=== PATIENT | male | born 1985 | race Caucasian/White ===

== ENCOUNTER 2022-07-12 13:50 | Emergency (ER) | payer BC, OTHER ==
[~2022-07-12] VITALS: Ht 198.1 cm; Wt 86.0 kg
[2022-07-12 14:08] VITALS: BP 160/84
[2022-07-12] MEDS ORDERED: cefTRIAXone SOD 1,000 MG VL IM ONE (16:45)
[2022-07-13] MEDS ORDERED: METO25TA93 PO ×2 (11:43→17:33)
[2022-07-13] MEDS ORDERED: LOSA-69 PO ×2 (11:43→17:33)
[2022-07-13] MEDS ORDERED: ALBU108A5 IN (17:33)
[2022-07-13] MEDS ORDERED: TADA5TAB11 PO (17:33)
[2022-07-13] MEDS ORDERED: FURO20TA3 PO (17:33)
[2022-07-13] MEDS ORDERED: INSLISPI SC (17:33)
[2022-07-13] MEDS ORDERED: WARF2.5T39 PO (17:33)
[2022-07-13] MEDS ORDERED: POTA10TA51 PO (17:33)
[2022-07-13] MEDS ORDERED: AMIO200T33 PO (17:33)
[2022-07-13] MEDS ORDERED: FLUT0.05 NAS (17:33)
== END 2022-07-12 18:56 | disposition home or self-care (01) ==
LOC: ER 13:50
DX: L03.116 Cellulitis of left lower limb (principal); Q87.40 Marfan syndrome, unspecified; E11.9 Type 2 diabetes mellitus without complications; Z88.8 Allergy status to other drugs, medicaments and biological substances
CPT/HCPCS: 73630; 96372; 99283; J0696

== ENCOUNTER 2022-07-13 08:02 | Inpatient (IN) | payer BC ==
[~2022-07-13] VITALS: Ht 198.1 cm; Wt 80.0 kg
[2022-07-13 09:35] LABS: Basophils # (auto) 0.1 10 ^3/uL (0-0.2); Basophils % (auto) 1.2 % (0.0-2.0); Eosinophils # (auto) 0.7 10 ^3/uL (0-0.8); Hematocrit 39.7 % (41.0-53.0); Hemoglobin 13.4 g/dL (13.5-17.5); Lymphocytes % (auto) 12.7 % (10.0-50.0); Mean Corpuscular Hemoglobin 31.6 pg (28.0-32.0); Mean Corpuscular Hgb Conc. 33.8 g/dL (32.0-36.0); Mean Corpuscular Volume 93.6 fL (80.0-100.0); Monocytes # (auto) 0.7 10 ^3/uL (0-1.3); Monocytes % (auto) 8.6 % (0.0-12.0); Neutrophils # (auto) 5.2 10 ^3/uL (1.6-8.6); Neutrophils % (auto) 68.5 % (37.0-80.0); Red Blood Cells 4.24 10^6/uL (4.5-5.90); Red Cell Distribution Width 16.7 % (11.8-14.3); White Blood Cell 7.7 10^3/uL (4.4-10.8)
[2022-07-13 10:04] LABS: Albumin 3.1 g/dL (3.4-5.0); BUN/Creatinine Ratio 22.7; Calcium 8.8 mg/dL (8.5-10.1); Magnesium 2.1 mg/dL (1.6-2.6); Potassium 4.4 mmol/L (3.5-5.1)
[2022-07-13 10:07] LABS: Bilirubin, Total 1.1 mg/dL (0.2-1.0); Total Protein 6.6 g/dL (6.4-8.2)
[2022-07-13] MEDS ORDERED: MORPHINE SULFATE INJ 2 MG/ml SYRG IV PRN (11:30)
[2022-07-13] MEDS ORDERED: VANCOMYCIN 1GM/250ML 250 ML IV ONE (11:30)
[2022-07-13] MEDS ORDERED: DOCUSATE SOD 100 MG CAP PO PRN (11:30)
[2022-07-13] MEDS ORDERED: HYDROcodone-ACET 5/325MG TAB PO PRN (11:30)
[2022-07-13] MEDS ORDERED: VANCOMYCIN PER PHARMACY 0 MG IV SCH (11:30)
[2022-07-13] MEDS ORDERED: ONDANSETRON HCL 4 MG/2 ML VIAL IV PRN (11:30)
[2022-07-13] MEDS ORDERED: NITROGLYCERIN 0.4 MG SL TAB SL PRN (11:30)
[2022-07-13] MEDS ORDERED: LOSA-69 PO ×2 (11:43→17:33)
[2022-07-13] MEDS ORDERED: METO25TA93 PO ×2 (11:43→17:33)
[2022-07-13] MEDS ORDERED: DEXTROSE (50%) 50ML SYRG IV PRN (12:00)
[2022-07-13 12:06] LABS: Urine Bacteria NONE SEEN /hpf (None Seen); Urine Blood Negative /uL (Negative); Urine Mucus FEW (None Seen); Urine Specific Gravity 1.026 (1.001-1.035); Urine WBC 1 /hpf (0 - 3)
[2022-07-13 12:27] LABS: INR 2.65 (0.9-1.15)
[2022-07-13] MEDS: SODIUM CHLOR 0.9% PF (SALINE LOCK) 10ML VIAL/SYR IV SCH ×2 (15:51→21:48)
[2022-07-13] MEDS: CEFEPIME 1GM/ 50ML 50 ML IV SCH ×2 (15:51→21:48)
[2022-07-13] MEDS ORDERED: WARFARIN SODIUM 5 MG TAB PO ONE (17:00)
[2022-07-13] MEDS: InsuLIN REG 1unit/0.01ml Soln (100units/ml) SC SCH (17:00)
[2022-07-13] MEDS ORDERED: FURO20TA3 PO (17:33)
[2022-07-13] MEDS ORDERED: INSLISPI SC (17:33)
[2022-07-13] MEDS ORDERED: WARF2.5T39 PO (17:33)
[2022-07-13] MEDS ORDERED: ALBU108A5 IN (17:33)
[2022-07-13] MEDS ORDERED: POTA10TA51 PO (17:33)
[2022-07-13] MEDS ORDERED: FLUT0.05 NAS (17:33)
[2022-07-13] MEDS ORDERED: AMIO200T33 PO (17:33)
[2022-07-13] MEDS ORDERED: TADA5TAB11 PO (17:33)
[2022-07-13] MEDS: ACCU-CHEK COMFORT CURVE STRIP VI SCH ×2 (18:14→21:49)
[2022-07-13 20:00] VITALS: BP 109/63
[2022-07-13] MEDS: VANCOMYCIN 1GM/250ML 250 ML IV SCH (20:05)
[2022-07-13] MEDS: METOPROLOL SUCCINATE XL 50 MG TAB PO SCH (21:49)
[2022-07-13 22:00] VITALS: BP 109/63
[2022-07-13] MEDS ORDERED: InsuLIN REG 1unit/0.01ml Soln (100units/ml) SC SCH (22:00)
[2022-07-14] VITALS (7 sets, daily range): BP systolic 12–137; BP diastolic 66–79
[2022-07-14] MEDS: VANCOMYCIN 1GM/250ML 250 ML IV SCH ×3 (04:09→19:35)
[2022-07-14 05:44] LABS: Hematocrit 39.1 % (41.0-53.0); Hemoglobin 13.8 g/dL (13.5-17.5); Mean Corpuscular Hemoglobin 32.5 pg (28.0-32.0); Mean Corpuscular Hgb Conc. 35.1 g/dL (32.0-36.0); Mean Corpuscular Volume 92.4 fL (80.0-100.0); Red Blood Cells 4.23 10^6/uL (4.5-5.90); Red Cell Distribution Width 16.6 % (11.8-14.3); White Blood Cell 5.2 10^3/uL (4.4-10.8)
[2022-07-14 06:01] LABS: Potassium 4.5 mmol/L (3.5-5.1)
[2022-07-14 06:05] LABS: Albumin 2.7 g/dL (3.4-5.0); BUN/Creatinine Ratio 18.9; Calcium 8.4 mg/dL (8.5-10.1)
[2022-07-14 06:07] LABS: Bilirubin, Total 0.9 mg/dL (0.2-1.0); Total Protein 5.6 g/dL (6.4-8.2)
[2022-07-14 06:08] LABS: INR 2.63 (0.9-1.15); Partial Thromboplastin Time 51.8 sec (24.6-33.4)
[2022-07-14 06:17] LABS: Band Neutrophils % (manual) 0; Basophils % (manual) 0 (0.0-2.0); Blast Cells 0; Metamyelocytes % 0; Myelocytes % 0; Promyelocytes % 0; Reactive Lymphocytes 0
[2022-07-14] MEDS: SODIUM CHLOR 0.9% PF (SALINE LOCK) 10ML VIAL/SYR IV SCH ×3 (06:23→21:40)
[2022-07-14] MEDS: ACCU-CHEK COMFORT CURVE STRIP VI SCH ×4 (06:24→21:40)
[2022-07-14] MEDS: InsuLIN REG 1unit/0.01ml Soln (100units/ml) SC SCH ×2 (06:24→11:30)
[2022-07-14] MEDS: CEFEPIME 1GM/ 50ML 50 ML IV SCH ×4 (06:55→21:39)
[2022-07-14 08:49] LABS: Eosinophils % (manual) 19 (0-7); Lymphocytes % (manual) 20 (10.0-50.0); Monocytes % (manual) 7 (0-12)
[2022-07-14] MEDS: PANTOPRAZOLE 40 MG/10 ML VIAL INJ IV SCH (10:03)
[2022-07-14] MEDS: LOSARTAN POTASSIUM 50 MG TAB PO SCH (10:04)
[2022-07-14] MEDS: METOPROLOL SUCCINATE XL 50 MG TAB PO SCH ×2 (10:04→21:39)
[2022-07-14] MEDS: ACETAMINOPHEN 325 MG TAB PO PRN (10:16)
[2022-07-14] MEDS ORDERED: WARFARIN SODIUM 2.5 MG TAB PO ONE (17:00)
[2022-07-14] MEDS ORDERED: VANCOMYCIN 1GM/250ML 250 ML IV SCH (18:00)
[2022-07-15] MEDS: VANCOMYCIN 1GM/250ML 250 ML IV SCH ×3 (03:50→19:12)
[2022-07-15 05:00] VITALS: BP 132/79
[2022-07-15] MEDS: CEFEPIME 1GM/ 50ML 50 ML IV SCH ×3 (06:08→21:38)
[2022-07-15] MEDS: SODIUM CHLOR 0.9% PF (SALINE LOCK) 10ML VIAL/SYR IV SCH ×3 (06:08→21:38)
[2022-07-15] MEDS: ACCU-CHEK COMFORT CURVE STRIP VI SCH ×4 (06:09→23:51)
[2022-07-15 06:30] LABS: INR 2.44 (0.9-1.15)
[2022-07-15 09:00] VITALS: BP 134/83
[2022-07-15] MEDS: DAKINS QUARTER STR 0.125% (NaHypochlorite) 473 ML TOPICAL SOL TOP SCH (10:00)
[2022-07-15] MEDS: PANTOPRAZOLE 40 MG/10 ML VIAL INJ IV SCH (11:43)
[2022-07-15] MEDS: LOSARTAN POTASSIUM 50 MG TAB PO SCH (11:45)
[2022-07-15] MEDS: METOPROLOL SUCCINATE XL 50 MG TAB PO SCH ×2 (11:47→21:39)
[2022-07-15 16:26] VITALS: BP 121/71
[2022-07-15 16:38] VITALS: BP 118/75
[2022-07-15] MEDS ORDERED: WARFARIN SODIUM 2.5 MG TAB PO ONE (17:15)
[2022-07-15 20:00] VITALS: BP 134/77
[2022-07-15 22:00] VITALS: BP 135/77
[2022-07-16] MEDS: VANCOMYCIN 1GM/250ML 250 ML IV SCH ×2 (03:48→11:30)
[2022-07-16] MEDS: ACETAMINOPHEN 325 MG TAB PO PRN (04:57)
[2022-07-16 05:00] VITALS: BP 115/63
[2022-07-16] MEDS: CEFEPIME 1GM/ 50ML 50 ML IV SCH (06:06)
[2022-07-16] MEDS: SODIUM CHLOR 0.9% PF (SALINE LOCK) 10ML VIAL/SYR IV SCH (06:06)
[2022-07-16] MEDS: ACCU-CHEK COMFORT CURVE STRIP VI SCH ×2 (06:24→11:24)
[2022-07-16 07:03] LABS: INR 2.37 (0.9-1.15); Partial Thromboplastin Time 45.2 sec (24.6-33.4)
[2022-07-16] MEDS ORDERED: LEVO500T31 PO (08:24)
[2022-07-16] MEDS: LOSARTAN POTASSIUM 50 MG TAB PO SCH (08:48)
[2022-07-16] MEDS: PANTOPRAZOLE 40 MG/10 ML VIAL INJ IV SCH (08:49)
[2022-07-16] MEDS: METOPROLOL SUCCINATE XL 50 MG TAB PO SCH (08:49)
[2022-07-16] MEDS: DAKINS QUARTER STR 0.125% (NaHypochlorite) 473 ML TOPICAL SOL TOP SCH (08:50)
[2022-07-16 09:00] VITALS: BP 110/63
[2022-07-16 10:35] VITALS: BP 110/63
[2022-07-16] MEDS ORDERED: WARFARIN SODIUM 2.5 MG TAB PO ONE (17:00)
== END 2022-07-16 14:05 | disposition home or self-care (01) | DRG 603 ==
LOC: ER 08:02 → TELE 11:43 → TELE-CENTR 15:51
PROVIDERS: ADMIT Nurse Practitioner Family; ATTEND Family Medicine
PROC: 0HBRXZZ Excision of Toe Nail, External Approach (ICD-10-PCS; principal; 2022-07-15)
DX: L03.032 Cellulitis of left toe (principal); Q87.40 Marfan syndrome, unspecified; M86.8X7 Other osteomyelitis, ankle and foot; E11.9 Type 2 diabetes mellitus without complications; Z20.822 Contact with and (suspected) exposure to COVID-19; E11.69 Type 2 diabetes mellitus with other specified complication; I10 Essential (primary) hypertension; Z79.01 Long term (current) use of anticoagulants; Z86.14 Personal history of Methicillin resistant Staphylococcus aureus infection; Z91.041 Radiographic dye allergy status; Z95.1 Presence of aortocoronary bypass graft; Z90.49 Acquired absence of other specified parts of digestive tract
CPT/HCPCS: 36415; 71045; 73718; 80053; 80202; 81001; 82565; 82962; 83036; 83605; 83735; 83880; 85007; 85025; 85027; 85610; 85652; 85730; 87077; 87186; 87205; 87426; C9113; G0378; J2405